=== PATIENT | female | born 1970 | race Asian ===

== ENCOUNTER 2017-10-14 11:03 | Day surgery (SDC) | payer OTHER ==
[~2017-10-14] VITALS: Ht 154.9 cm; Wt 64.3 kg
[~2017-10-14 11:03] MED LIST: BUPIVACAINE/PF 0.5% ONE; CALC600T4 PO; LEVO88TA2 PO; MAGN250T8 PO; MONT10TA6 PO
[2017-10-14 12:37] VITALS: BP 118/76
[2017-10-14] MEDS ORDERED: LACTATED RINGERS 1,000 ML IV SCH (12:39)
[2017-10-14 12:40] LABS: HCG UR LOT HCG7030192
[2017-10-14 12:51] LABS: HCG UR OBC PASS
[2017-10-14] MEDS ORDERED: LIDOCAINE 1%, 20ML ONE (13:02)
[2017-10-14] MEDS ORDERED: MIDAZOLAM 1 MG/ML, 2ML ONE (13:26)
[2017-10-14] MEDS ORDERED: FENTANYL PF 250 MCG/5ML ONE (13:27)
[2017-10-14] MEDS ORDERED: LIDOCAINE GEL 2%, 5ML ONE (13:29)
[2017-10-14] MEDS ORDERED: PROPOFOL 10 MG/ML, 20ML ONE (13:29)
[2017-10-14] MEDS ORDERED: FENTANYL PF 100 MCG/2ML IV PRN (13:30)
[2017-10-14] MEDS ORDERED: ACETAMINOPHEN 325 MG TABLET PO PRN (13:30)
[2017-10-14] MEDS ORDERED: HYDROmorphone 1 MG/ML, 1ML IV PRN (13:30)
[2017-10-14] MEDS ORDERED: ONDANSETRON 2MG/ML, 2ML IVPush PRN (13:30)
[2017-10-14] MEDS ORDERED: OXYcodone 5 MG/5 ML ORAL.SOL UDC PO PRN (13:30)
[2017-10-14] MEDS ORDERED: LIDOCAINE-MPF 2% ,5ML ONE (13:32)
[2017-10-14] MEDS ORDERED: CEFAZOLIN 1,000 MG ONE (13:33)
[2017-10-14] MEDS ORDERED: ROCURONIUM 10 MG/ML,10ML ONE (13:33)
[2017-10-14] MEDS ORDERED: ONDANSETRON 2MG/ML, 2ML ONE (13:33)
== END 2017-10-14 17:10 ==
LOC: CFH 11:03 → EDSTATUS 11:30 → OUT 17:10
PROVIDERS: ATTEND Surgery
DX: N60.11 Diffuse cystic mastopathy of right breast (principal); N64.89 Other specified disorders of breast; E03.9 Hypothyroidism, unspecified; J45.909 Unspecified asthma, uncomplicated
CPT/HCPCS: 19125; 19285; 76098; 81025; 88307; G0206; J0690; J2250; J2405; J2704; J3010; J3490; J7120